=== PATIENT | female | born 1990 | race Two or more races ===

== ENCOUNTER → 2018-01-12 | Outpatient (CLI) | payer MEDICAID ==
[2018-01-12 08:53] LABS: Alcohol, Urine < 3.0 mg/dL (0-5); Amphetamine Screen, Urine NEGATIVE (NEGATIVE); Barbiturate Scree,Urine NEGATIVE (NEGATIVE); Benzodiazephine Screen, Urine NEGATIVE (NEGATIVE); Cannabinoid Screen, Urine NEGATIVE (NEGATIVE); Cocaine Screen, Urine NEGATIVE (NEGATIVE); Opiate Scree,Urine NEGATIVE (NEGATIVE); Phencyclidine Screen, Urine NEGATIVE (NEGATIVE)
== END | disposition home or self-care (01) ==
LOC: LAB 06:30
PROVIDERS: ATTEND Specialist
DX: Z34.80 Encounter for supervision of other normal pregnancy, unspecified trimester (principal); Z3A.00 Weeks of gestation of pregnancy not specified
CPT/HCPCS: 36415; 80307; 82951; 83036; 86703; 86850; 86900; 86901; 87086; 87591

== ENCOUNTER → 2018-03-18 | Emergency (ER) | payer MEDICAID ==
[~2018-03-18] VITALS: Ht 154.9 cm; Wt 64.4 kg
[~2018-03-18] MED LIST: ACETAMINOPHEN 325 MG TAB PO ONE; FERR-7 PO; NIF10C GT; ONDANSETRON ODT 4 MG TAB PO ONE; PREN-96 PO
[2018-03-19] MEDS: TERBUTALINE SULFATE 1 MG/ML 1ML VIAL SC SCH ×3 (00:33→01:25)
[2018-03-19 01:10] VITALS: BP 117/62
== END | disposition home or self-care (01) ==
LOC: ER 19:44
DX: O26.893 Other specified pregnancy related conditions, third trimester (principal); G43.909 Migraine, unspecified, not intractable, without status migrainosus; G89.29 Other chronic pain; M54.5 Low back pain; Z3A.37 37 weeks gestation of pregnancy
CPT/HCPCS: 96372; 99283; Q0162

== ENCOUNTER 2018-03-23 03:30 | Observation (INO) | payer MEDICAID ==
[~2018-03-23] VITALS: Ht 154.9 cm; Wt 64.9 kg
[2018-03-23] MEDS ORDERED: TERBUTALINE SULFATE 1 MG/ML 1ML VIAL SC ONE (04:07)
[2018-03-23] MEDS: TERBUTALINE SULFATE 1 MG/ML 1ML VIAL SC SCH ×2 (04:10→04:35)
[2018-03-23] MEDS ORDERED: PREN-96 PO (05:12)
[2018-03-24] MEDS ORDERED: NIF10C GT (11:28)
[2018-03-24] MEDS ORDERED: FERR-7 PO (11:28)
== END 2018-03-23 05:06 | disposition home or self-care (01) | DRG 566 ==
LOC: LDRP 03:30 → UNDODISOB 05:06
PROVIDERS: ADMIT Obstetrics & Gynecology; ATTEND Obstetrics & Gynecology
DX: O62.9 Abnormality of forces of labor, unspecified (principal); O26.893 Other specified pregnancy related conditions, third trimester; N89.8 Other specified noninflammatory disorders of vagina; Z91.018 Allergy to other foods; Z3A.37 37 weeks gestation of pregnancy
CPT/HCPCS: 59025; 81002; 96372; G0378; J3105

== ENCOUNTER 2018-03-24 11:05 | Observation (INO) | payer MEDICAID ==
[~2018-03-24 11:05] MED LIST changes: -ACETAMINOPHEN 325 MG TAB PO ONE; -FERR-7 PO; -NIF10C GT; -ONDANSETRON ODT 4 MG TAB PO ONE
[2018-03-24] MEDS ORDERED: NIF10C GT (11:28)
[2018-03-24] MEDS ORDERED: FERR-7 PO (11:28)
== END 2018-03-24 12:50 | disposition home or self-care (01) | DRG 563 ==
LOC: LDRP 11:05
PROVIDERS: ADMIT Specialist; ATTEND Specialist
DX: O60.03 Preterm labor without delivery, third trimester (principal); Z3A.37 37 weeks gestation of pregnancy
CPT/HCPCS: 59025; 81002; G0378

== ENCOUNTER 2018-04-03 09:30 | Inpatient (IN) | payer MEDICAID ==
[2018-04-03] VITALS (10 sets, daily range): BP systolic 116–152; BP diastolic 49–89
[~2018-04-03] VITALS: Ht 33 cm; Wt 0.5 kg
[~2018-04-03 09:30] MED LIST changes: +FERR-7 PO; +NIF10C GT
[2018-04-03] MEDS: LACTATED RINGER'S 1,000 ML IV SCH ×2 (10:35→11:25)
[2018-04-03 11:42] LABS: Basophils # (auto) 0 uL; Basophils % (auto) 0.4 % (0.0-2.0); Eosinophils # (auto) 0 uL; Eosinophils % (auto) 0.3 % (0.0-7.0); Hematocrit 31.7 % (36.0-46.0); Lymphocytes # (auto) 1.4 uL; Lymphocytes % (auto) 23.2 % (10.0-50.0); Mean Corpuscular Hemoglobin 32.2 pg (28.0-32.0); Mean Corpuscular Hgb Conc. 34.6 g/dL (32.0-36.0); Mean Corpuscular Volume 93.2 fL (80.0-100.0); Monocytes # (auto) 0.6 uL; Monocytes % (auto) 9.5 % (0.0-12.0); Neutrophils # (auto) 4.2 uL; Neutrophils % (auto) 66.6 % (37.0-80.0); Nucleated Red Blood Cells % 0.1 %; Platelet Count (auto) 157 10^3/uL (140-450); Red Cell Distribution Width 13.5 % (11.8-14.3); White Blood Cell 6.2 10^3/uL (4.4-10.8)
[2018-04-03 11:48] LABS: INR 0.85 (0.9-1.15); Partial Thromboplastin Time 26.6 sec (23.78-33.04); Prothrombin Time 9.2 sec (9.27-12.13)
[2018-04-03 11:57] LABS: Albumin 2.3 g/dL (3.4-5.0); BUN/Creatinine Ratio 7.3; Bilirubin, Total 0.3 mg/dL (0.2-1.0); Calcium 7.7 mg/dL (8.5-10.1); Potassium 3.7 mmol/L (3.5-5.1); Total Protein 5.7 g/dL (6.4-8.2)
[2018-04-03 12:05] LABS: Urine Bacteria MANY /hpf (None Seen); Urine Blood Negative /uL (Negative); Urine Specific Gravity 1.004 (1.001-1.035); Urine WBC 5 /hpf (0 - 5)
[2018-04-03] MEDS ORDERED: TETRACAINE 1% INJ 2 ML VIAL IJ ONE (12:59)
[2018-04-03] MEDS ORDERED: diphenhdrAMINE HCL 50 MG/1 ML VL IV PRN (13:00)
[2018-04-03] MEDS ORDERED: DEXAMETHASONE SOD PHOS 10MG/1ML VIAL INJ IV PRN (13:00)
[2018-04-03] MEDS ORDERED: HYDROmorphone HCL 2 MG/ML VL IV PRN ×2 (13:00)
[2018-04-03] MEDS ORDERED: NALBUPHINE HCL 10 MG/1ml INJECTION SUBCUT ONE (13:00)
[2018-04-03] MEDS ORDERED: ePHEDrine SULFATE 50 MG/ML AMP IV PRN (13:00)
[2018-04-03] MEDS ORDERED: NALOXONE HCL 0.4 MG/ML VIAL IV PRN (13:00)
[2018-04-03] MEDS ORDERED: LABETALOL HCL 5 MG/ML 4ML SYRINGE IV PRN (13:00)
[2018-04-03] MEDS ORDERED: ONDANSETRON HCL 4 MG/2 ML VIAL IV PRN ×2 (13:00→14:15)
[2018-04-03] MEDS ORDERED: fentaNYL CITRATE 100 MCG/2 ML VL ONE (13:04)
[2018-04-03] MEDS ORDERED: MORPHINE SULF(PF) 0.5MG/ML 10ML VIAL ONE (13:04)
[2018-04-03] MEDS ORDERED: MIDAZOLAM HCL 1MG/1ML-2 ML VIAL ONE (13:05)
[2018-04-03] MEDS ORDERED: OXYTOCIN 10 UNIT/ML 10ML VIAL ONE (13:20)
[2018-04-03] MEDS ORDERED: ceFAZolin 1GM VL ONE (13:20)
[2018-04-03] MEDS ORDERED: LACTATED RINGER'S 1,000 ML IV SCH (14:12)
[2018-04-03] MEDS: ceFAZolin 1GM/50ML 50 ML IV SCH ×2 (14:15→21:37)
[2018-04-03] MEDS ORDERED: MORPHINE SULFATE 4 MG/ML SYR/VIAL IV PRN (14:15)
[2018-04-03] MEDS: KETOROLAC TROMETH 30 MG/ML 1ML VIAL IV PRN (17:33)
[2018-04-03] MEDS ORDERED: KETOROLAC TROMETH 30 MG/ML 1ML VIAL IV SCH (18:00)
[2018-04-03] MEDS ORDERED: PROMETHAZINE HCL 25 MG/ML 1ML IV PRN (19:45)
[2018-04-04] VITALS (9 sets, daily range): BP systolic 108–126; BP diastolic 40–72
[2018-04-04] MEDS: KETOROLAC TROMETH 30 MG/ML 1ML VIAL IV PRN ×2 (01:04→08:05)
[2018-04-04] MEDS: LACTATED RINGER'S 1,000 ML IV SCH ×2 (02:08→09:53)
[2018-04-04] MEDS ORDERED: TETANUS-DIPTH-ACEL PERTUSSIS 0.5ML SYRG IM ONE (02:45)
[2018-04-04 06:05] LABS: RPR Non Reactive (Non Reactive)
[2018-04-04] MEDS: ceFAZolin 1GM/50ML 50 ML IV SCH (06:30)
[2018-04-04 07:53] LABS: Basophils # (auto) 0 uL; Basophils % (auto) 0.2 % (0.0-2.0); Eosinophils # (auto) 0 uL; Hematocrit 25.4 % (36.0-46.0); Hemoglobin 8.9 g/dL (12.2-16.2); Lymphocytes # (auto) 1.3 uL; Lymphocytes % (auto) 19.1 % (10.0-50.0); Mean Corpuscular Hemoglobin 32.9 pg (28.0-32.0); Mean Corpuscular Hgb Conc. 34.9 g/dL (32.0-36.0); Mean Corpuscular Volume 94.1 fL (80.0-100.0); Monocytes # (auto) 0.4 uL; Monocytes % (auto) 5.5 % (0.0-12.0); Neutrophils # (auto) 5.3 uL; Neutrophils % (auto) 75.2 % (37.0-80.0); Platelet Count (auto) 116 10^3/uL (140-450); Red Cell Distribution Width 13.4 % (11.8-14.3)
[2018-04-04] MEDS ORDERED: HYDROcodone-ACET 5/325MG TAB PO PRN (12:45)
[2018-04-04] MEDS ORDERED: SIMETHICONE 80 MG CHEWABLE TABLET PO PRN (12:45)
[2018-04-04] MEDS: DOCUSATE SOD 100 MG CAP PO SCH ×2 (12:58→21:47)
[2018-04-04] MEDS: HYDROcodone-ACET 5/325MG TAB PO PRN ×2 (12:58→21:10)
[2018-04-04] MEDS ORDERED: ceFAZolin 1GM/50ML 50 ML IV SCH (14:30)
[2018-04-04] MEDS: LIDOCAINE 5% TOPICAL PATCH TOP SCH ×2 (15:40)
[2018-04-04] MEDS: IBUPROFEN 800 MG TAB PO PRN (17:10)
[2018-04-05 02:57] VITALS: BP 118/82
[2018-04-05] MEDS: HYDROcodone-ACET 5/325MG TAB PO PRN ×3 (03:01→21:55)
[2018-04-05] MEDS: IBUPROFEN 800 MG TAB PO PRN ×2 (06:27→14:31)
[2018-04-05 07:05] VITALS: BP 129/72
[2018-04-05 11:10] VITALS: BP 118/65
[2018-04-05] MEDS: DOCUSATE SOD 100 MG CAP PO SCH ×2 (11:54→22:00)
[2018-04-05] MEDS: LIDOCAINE 5% TOPICAL PATCH TOP SCH ×2 (11:54)
[2018-04-05 15:00] VITALS: BP 118/79
[2018-04-05 19:00] VITALS: BP 113/61
[2018-04-05 23:00] VITALS: BP 122/73
[2018-04-06 03:00] VITALS: BP 122/54
[2018-04-06] MEDS: IBUPROFEN 800 MG TAB PO PRN (03:47)
[2018-04-06 07:00] VITALS: BP 130/73
[2018-04-06] MEDS: DOCUSATE SOD 100 MG CAP PO SCH (08:11)
[2018-04-06] MEDS: HYDROcodone-ACET 5/325MG TAB PO PRN (08:11)
== END 2018-04-06 09:45 | disposition home or self-care (01) | DRG 540 ==
LOC: OBSVTOIN 09:30 → LDRP 09:30
PROVIDERS: ADMIT Specialist; ATTEND Specialist
PROC: 10D00Z1 Extraction of Products of Conception, Low, Open Approach (ICD-10-PCS; principal; 2018-04-03 12:56)
DX: O69.81X0 Labor and delivery complicated by cord around neck, without compression, not applicable or unspecified (principal); S32.9XXA Fracture of unspecified parts of lumbosacral spine and pelvis, initial encounter for closed fracture; Z37.0 Single live birth; Z3A.39 39 weeks gestation of pregnancy
CPT/HCPCS: 36415; 59025; 80053; 81001; 81002; 85025; 85610; 85730; 86592; 86850; 86900; 86901; 96366; 96375; G0378; J0690; J1885; J2250; J2405; J2590

== ENCOUNTER 2018-06-08 11:08 | Emergency (ER) | payer MEDICAID ==
[~2018-06-08] VITALS: Ht 154.9 cm; Wt 64.4 kg
[~2018-06-08 11:08] MED LIST changes: -NIF10C GT
[2018-06-08 12:29] VITALS: BP 116/73
== END 2018-06-08 13:40 | disposition home or self-care (01) ==
LOC: ER 11:08
DX: N61.0 Mastitis without abscess (principal)